=== PATIENT | male | born 1950 | race Caucasian/White ===

== ENCOUNTER 2021-10-06 11:49 | Emergency (ER) | payer MEDICARE ==
[~2021-10-06] VITALS: Ht 177.8 cm; Wt 102.0 kg
[2021-10-06 12:39] LABS: HEMATOCRIT 39.2 % (39.0-50.0); HEMOGLOBIN 13.4 g/dl (14.0-18.0); MEAN CELL VOLUME 102.3 fL CALC (80.0-100.0); MEAN CORPUSCULAR HGB CONC 34.2 g/dL CAL (32.0-36.0); NEUT# 2.12 thou/uL (1.82-7.42); RED BLOOD COUNT 3.83 mill/uL (4.70-6.10); RED CELL DISTRI WIDTH 11.6 % (11.5-15.5)
[2021-10-06] MEDS ORDERED: LISINOPRIL10 MG PO (12:48)
[2021-10-06 12:52] LABS: ALKALINE PHOSPHATASE 85 u/l (38-126); ANION GAP 11 (6-22 (CALC)); BILIRUBIN, TOTAL 0.6 mg/dL (0.0-1.4); BUN 17 mg/dL (8-23); BUN/CREATININE RATIO 19 (12-20 (CALC)); CARBON DIOXIDE 28 mmol/l (22-30); CHLORIDE 103 mmol/l (95-108); CREATININE 0.9 mg/dL (0.7-1.3); GFR > 60 ML/MIN (>=60 (CALC)); GFR FOR AFR.AMER. > 60 ML/MIN (>=60 (CALC)); POTASSIUM 4.2 mmol/l (3.5-5.1); SGOT/AST 41 u/l (19-48); SODIUM 137 mmol/l (137-146); TOTAL PROTEIN 7.4 g/dL (6.3-8.2)
[2021-10-06] MEDS ORDERED: BENADRYL25 M1 PO (14:42)
[2021-10-06] MEDS ORDERED: MEDDOSEPAK PO (14:42)
[2021-10-06 14:53] VITALS: BP 126/78
== END 2021-10-06 15:32 | disposition home or self-care (01) ==
LOC: ED 11:49
DX: T78.3XXA Angioneurotic edema, initial encounter (principal); I10 Essential (primary) hypertension

== ENCOUNTER 2024-10-06 07:52 | Emergency (ER) | payer MEDICARE ==
[~2024-10-06] VITALS: Ht 177.8 cm; Wt 109.0 kg
[~2024-10-06 07:52] MED LIST: BENADRYL25 M1 PO; LISINOPRIL10 MG PO; MECLIZINE25 M1 PO; MEDDOSEPAK PO
[2024-10-06 07:57] VITALS: BP 176/85
[2024-10-06 08:00] VITALS: BP 157/85
[2024-10-06 08:04] VITALS: BP 157/85
[2024-10-06] MEDS ORDERED: ELIQUIS2.5 MG (08:23)
== END 2024-10-06 10:00 | disposition home or self-care (01) ==
LOC: ED 07:52
DX: M79.662 Pain in left lower leg (principal); I10 Essential (primary) hypertension; A50.02 Early congenital syphilitic osteochondropathy; Z86.718 Personal history of other venous thrombosis and embolism; Z96.652 Presence of left artificial knee joint